=== PATIENT | female | born 1985 | race Two or more races ===

== ENCOUNTER 2017-12-16 12:53 | Emergency (ER) | payer OTHER ==
[2017-12-16 12:58] VITALS: BP 129/80; PULSE 61; TEMP 98.1; BMI 28.3
--- NOTE | 2017-12-16 13:12 | PDOC ---
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 Patient states she was working in the operating room when she was accidentally stuck with a 23-gauge hypodermic needle that was used for local anesthesia. Patient states she was wearing double gloves while in the operating room at the time. She immediately removed her gloves express fluid from the puncture wound and washed her hands with soap water Betadine and hydrogen peroxide. Patient then scrubbed out of the operating room and came to the emergency department for evaluation. Source patient hasn't medical record number of [id number] and has no documentation of communicable diseases. Pt is UTD with tetanus. Past History - Past Medical History Allergies/Adverse Reactions: Allergies Allergy/AdvReac Type Severity Reaction Status Date / Time No Known Allergies Allergy Verified 12/16/17 12:54 Home Medications: Ambulatory Orders Multivitamin [Multiple Vitamins] 1 each PO DAILY 12/16/17 COPD: No - Surgical History GI Surgery: Yes (gastric bypass) - Suicide/Smoking/Psychosocial Hx Smoking History: Never smoked Review of Systems - Review of Systems Able to Perform ROS?: Yes Is the patient limited Indonesian proficient: No Constitutional: No: Symptoms Reported HEENTM: No: Symptoms Reported Respiratory: No: Symptoms reported Cardiac (ROS): No: Symptoms Reported ABD/GI: No: Symptoms Reported : No: Symptoms Reported Musculoskeletal: No: Symptoms Reported Integumentary: No: Symptoms Reported Neurological: No: Symptoms reported Endocrine: No: Symptoms Reported Hematologic/Lymphatic: No: Symptoms Reported *Physical Exam - Vital Signs Last Vital Signs Temp Pulse Resp BP Pulse Ox 98.1 F 61 16 129/80 99 12/16/17 12:57 12/16/17 12:57 12/16/17 12:57 12/16/17 12:57 12/16/17 12:57 - Physical Exam General Appearance: Yes: Appropriately Dressed. No: Apparent Distress Musculoskeletal: positive: Normal Inspection, Other (Single puncture wound noted to the dorsum of the first inch on the right hand. Bleeding controlled at present) Integumentary: positive: Normal Color, Dry, Warm Medical Decision Making - Medical Decision Making 12/16/17 15:11 A/P: 32-year-old woman for evaluation status post needlestick Single puncture wound present to the dorsum of the first digit of the right hand Bleeding is controlled Source patient has no documented communicable diseases Labs, patient counseling After patient counseling provided, patient is choosing to defer medication therapy at this time. Patient's current HIV status is negative. Patient has been instructed to follow-up with occupational health and safety on the first floor building for reevaluation of her lab tests. I discussed the physical exam findings, ancillary test results and final diagnoses with the patient. I answered all of the patient's questions. The patient was satisfied with the care received and felt comfortable with the discharge plan and treatment plan. The patient will call their primary care physician within 24 hours to arrange follow-up and will return to the Emergency Department with any new, persistent or worsening symptoms. *DC/Admit/Observation/Transfer Diagnosis at time of Disposition: Needlestick injury due to hypodermic needle - Discharge Dispostion Disposition: HOME Condition at time of disposition: Fair Decision to Admit order: No - Referrals - Patient Instructions Printed Discharge Instructions: How to Handle Body Fluid Exposure -- Healthcare Worker Additional Instructions: Follow up with Workforce Health and Safety on the first floor here at [facility]. - Post Discharge Activity Forms/Work/School Notes: Back to Work
[2017-12-16 13:37] LABS: BASO % 0.7 % (0-2.0); EOS % 1.1 % (0-4.5); HEMATOCRIT 40.3 % (32.4-45.2); HEMOGLOBIN 13.2 GM/dL (10.7-15.3); LYMPH % 33.8 % (8-40); MCH 27.5 pg (25.7-33.7); MCHC 32.8 g/dl (32.0-36.0); MEAN CELL VOLUME 83.9 fl (80-96); MEAN PLT VOLUME 9.3 fl (7.5-11.1); MONO % 6.9 % (3.8-10.2); NEUT % 57.5 % (42.8-82.8); PLATELET COUNT 231 K/MM3 (134-434); RDW 12.9 % (11.6-15.6); WHITE BLOOD COUNT 6.5 K/mm3 (4.0-10.0)
[2017-12-16 14:00] LABS: ANION GAP 6 MMOL/L (8-16); BILIRUBIN,TOTAL 0.3 mg/dL (0.2-1); BLOOD UREA NITROGEN 9 mg/dL (7-18); CALCIUM 9.6 mg/dL (8.5-10.1); CHLORIDE 105 mmol/L (98-107); CHOLESTEROL 195 mg/dL (50-200); CO2 26 mmol/L (21-32); CREATININE 0.8 mg/dL (0.55-1.3); GLUCOSE,RANDOM 82 mg/dL (74-106); PHOSPHOROUS 3.6 mg/dL (2.5-4.9); POTASSIUM 4.1 mmol/L (3.5-5.1); SGOT/AST 20 U/L (15-37); SGPT/ALT 21 U/L (13-61); SODIUM 137 mmol/L (136-145); TOT PROT 7.6 g/dl (6.4-8.2); TRIGLYCERIDES 77 mg/dL (0-150); URIC ACID 4.3 mg/dL (2.6-7.2)
[2017-12-16 14:01] LABS: ALK PHOS 74 U/L (45-117); GAMMA GLUTAMYL TRANSPEPTIDASE 22 U/L (5-85); LDH 157 U/L (84-246)
[2017-12-17 06:08] LABS: HBsAG SCREEN Negative (Negative)
== END 2017-12-16 14:28 | disposition home or self-care (01) ==
LOC: JERFT 12:53
DX: S61.031A Puncture wound without foreign body of right thumb without damage to nail, initial encounter (principal); W46.1XXA Contact with contaminated hypodermic needle, initial encounter; Y93.89 Activity, other specified; Y92.234 Operating room of hospital as the place of occurrence of the external cause; Y99.0 Civilian activity done for income or pay
CPT/HCPCS: 36415; 80053; 82465; 82977; 83615; 84100; 84478; 84550; 84703; 85025; 86317; 86706; 86803; 87340; 87389; 99282-25

== ENCOUNTER 2018-06-20 14:48 | Emergency (ER) | payer OTHER ==
[2018-06-20 15:17] VITALS: BP 134/84; PULSE 61; TEMP 97.6; BMI 29.1
--- NOTE | 2018-06-20 15:17 | PDOC ---
Rapid Medical Evaluation Chief Complaint: Blood/Body Fluid Exposure SJR Time Seen by Provider: 06/20/18 15:14 Medical Evaluation: Allergies Allergy/AdvReac Type Severity Reaction Status Date / Time No Known Allergies Allergy Verified 12/16/17 12:54 06/20/18 15:14 33 YEAR OLD FEMALE reports during a cystogram irrigation fluid splas in the mouth. patient rinsed mouth. source patient info: kristi powell Pe: patient alert ox3 A: fluid exposure P; patient to the ER for further management of care. Discharge Disposition - Diagnosis Employee exposure to body fluids - Referrals - Patient Instructions
--- NOTE | 2018-06-20 15:54 | PDOC ---
Post Exposure HPI - General Chief Complaint: Blood/Body Fluid Exposure SJR Stated Complaint: FACE EXPOSED TO SOLUTION Time Seen by Provider: 06/20/18 15:14 - History of Present Illness Initial Comments: 06/20/18 15:53 33-year-old female without comorbidities presents for evaluation after body fluid exposure. 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 Past History - Past Medical History Allergies/Adverse Reactions: Allergies Allergy/AdvReac Type Severity Reaction Status Date / Time No Known Allergies Allergy Verified 12/16/17 12:54 Home Medications: Ambulatory Orders Multivitamin [Multiple Vitamins] 1 each PO DAILY 12/16/17 COPD: No - Surgical History GI Surgery: Yes (gastric bypass) - Suicide/Smoking/Psychosocial Hx Smoking History: Never smoked Have you smoked in the past 12 months: No Hx Alcohol Use: No Drug/Substance Use Hx: No Review of Systems - Review of Systems Constitutional: Yes: See HPI *Physical Exam - Vital Signs Last Vital Signs Temp Pulse Resp BP Pulse Ox 97.6 F 61 20 134/84 100 06/20/18 15:13 06/20/18 15:13 06/20/18 15:13 06/20/18 15:13 06/20/18 15:13 - Physical Exam Comments: 06/20/18 15:53 HEAD: NC/AT EYES: Conjuntiva clear MS: Full ROM in all joints without edema NEUROLOGIC: No gross sensory or motor deficits, NVID SKIN: Normal color and temperature no lesions or rashes Medical Decision Making - Medical Decision Making 06/20/18 15:53 Source patient is HIV and hepatitis negative according to the patient, low risk exposure including urine no blood born pathogen exposure. Patient offered HIV prophylaxis but refused I agree with this this is a low risk patient and a low risk exposure *DC/Admit/Observation/Transfer Diagnosis at time of Disposition: Employee exposure to body fluids - Discharge Dispostion Disposition: HOME Condition at time of disposition: Stable Decision to Admit order: No - Referrals - Patient Instructions Printed Discharge Instructions: How to Handle Body Fluid Exposure -- Healthcare Worker Additional Instructions: Return to the emergency room should you have any further issues otherwise follow -up with her primary care physician one to 2 days for further evaluation and treatment options. - Post Discharge Activity Forms/Work/School Notes: Back to Work
== END 2018-06-20 16:19 | disposition home or self-care (01) ==
LOC: JERFT 14:48
DX: Z77.21 Contact with and (suspected) exposure to potentially hazardous body fluids (principal); X58.XXXA Exposure to other specified factors, initial encounter; Y93.89 Activity, other specified; Y92.238 Other place in hospital as the place of occurrence of the external cause; Y99.0 Civilian activity done for income or pay
CPT/HCPCS: 99281-25

== ENCOUNTER 2018-09-19 20:14 | Emergency (ER) | payer OTHER ==
[2018-09-19 20:24] VITALS: BP 130/88; PULSE 60; TEMP 98; BMI 29.1
--- NOTE | 2018-09-19 20:28 | PDOC ---
Rapid Medical Evaluation Chief Complaint: Blood/Body Fluid Exposure SJR Time Seen by Provider: 09/19/18 20:21 Medical Evaluation: Allergies Allergy/AdvReac Type Severity Reaction Status Date / Time No Known Allergies Allergy Verified 09/19/18 20:24 Vital Signs Temp Pulse Resp BP Pulse Ox 98.0 F 60 16 130/88 100 09/19/18 20:22 09/19/18 20:22 09/19/18 20:22 09/19/18 20:22 09/19/18 20:22 09/19/18 20:26 I have performed a brief in-person evaluation of this patient. 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 Was wearing 2 gloves. Has since expressed blood and washed site. Pt hep B vaccinated w/ UTD tetanus. States source has hepatitis but unsure type. States staff upstairs has since ordered HIV/hep panel on source. Pt refusing PEP at this time Pertinent physical exam findings:unremarkable I have ordered the following:baseline labs The patient will proceed to the ED for further evaluation Discharge Disposition - Diagnosis Needlestick injury accident - Referrals - Patient Instructions
--- NOTE | 2018-09-19 21:22 | PDOC ---
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 While cleaning up she accidentally stuck herself with a suture needle while wearing 2 pairs of gloves. Patient noted finger prick to the cuticle of the left index finger. Patient noted small amounts of blood for which she and then wash her hands with soap and water. Patient reports she is up-to-date with her tetanus and has been vaccinated for hepatitis B. No recent travel or sick contacts. PAST MEDICAL HISTORY: Denies past medical history SURGICAL HISTORY: Denies ALLERGIES: No known drug allergies REVIEW OF SYSTEMS General/Constitutional: Denies fever or chills. Denies weakness, weight change. HEENT: Denies change in vision. Denies ear pain or discharge. Denies sore throat. Cardiovascular: Denies chest pain or shortness of breath. Respiratory: Denies cough, wheezing, or hemoptysis. Gastrointestinal: Denies nausea, vomiting, diarrhea or constipation. Denies rectal bleeding. Genitourinary: Denies dysuria, frequency, or change in urination. Musculoskeletal: Denies joint or muscle swelling or pain. Denies neck or back pain. Skin and breasts: see HPI Neurologic: Denies headache, vertigo, loss of consciousness, or loss of sensation. Psychiatric: Denies depression or anxiety. Endocrine: Denies increased thirst. Denies abnormal weight change. Hematologic/Lymphatic: Denies anemia, easy bleeding, or history of blood clots. Allergic/Immunologic: Denies hives or skin allergy. Denies latex allergy. PHYSICAL EXAM General Appearance: Well-appearing, appropriately dressed. No apparent distress , no intoxication. Musculoskeletal/Extremities: Normal inspection. FROM of all extremities, normal capillary refill. Pelvis Stable. No CVA tenderness. No tenderness to extremities, pedal edema, swelling, erythema or deformity. Integumentary: Punctate wound present to the cuticle of the left index finger. Bleeding is controlled. 09/19/18 22:17 Past History - Past Medical History Allergies/Adverse Reactions: Allergies Allergy/AdvReac Type Severity Reaction Status Date / Time No Known Allergies Allergy Verified 09/19/18 20:24 Home Medications: Ambulatory Orders Multivitamin [Multiple Vitamins] 1 each PO DAILY 12/16/17 COPD: No - Surgical History GI Surgery: Yes (gastric bypass) - Suicide/Smoking/Psychosocial Hx Smoking History: Unknown if ever smoked Have you smoked in the past 12 months: No Information on smoking cessation initiated: No Hx Alcohol Use: No Drug/Substance Use Hx: No *Physical Exam - Vital Signs Last Vital Signs Temp Pulse Resp BP Pulse Ox 98.0 F 60 16 130/88 100 09/19/18 20:22 09/19/18 20:22 09/19/18 20:22 09/19/18 20:22 09/19/18 20:22 Medical Decision Making - Medical Decision Making 09/19/18 21:26 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 I will wait for her HIV results prior to discharge home for patient to follow- up with occupational health services. 09/19/18 21:43 Hiv testing is negative. Discharge home to f/u with [facility]. *DC/Admit/Observation/Transfer Diagnosis at time of Disposition: Needlestick injury accident - Discharge Dispostion Disposition: HOME Condition at time of disposition: Stable Decision to Admit order: No - Referrals - Patient Instructions Printed Discharge Instructions: How to Handle Body Fluid Exposure -- Healthcare Worker Additional Instructions: Your HIV testing today was negative. Follow-up with occupational health services for your of the laboratory testing. You may start postexposure prophylaxis at that time should she change your mind. Thank you very much for choosing us to provide your emergent health care needs. - Post Discharge Activity Forms/Work/School Notes: Back to Work
== END 2018-09-19 21:46 | disposition home or self-care (01) ==
LOC: JERFT 20:14
DX: Z77.21 Contact with and (suspected) exposure to potentially hazardous body fluids (principal); S61.032A Puncture wound without foreign body of left thumb without damage to nail, initial encounter; W46.1XXA Contact with contaminated hypodermic needle, initial encounter; Y93.F9 Activity, other caregiving; Y92.234 Operating room of hospital as the place of occurrence of the external cause; Y99.0 Civilian activity done for income or pay
CPT/HCPCS: 36415; 86317; 86704; 86803; 87340; 87389; 99282-25

== ENCOUNTER 2021-02-03 20:05 | Inpatient (IN) | payer OTHER ==
[2021-02-03 21:16] VITALS: BMI 33.9
[2021-02-03] MEDS ORDERED: DINOPROSTONE 10 MG VAGINAL SUPPOSITORY VG ONE (21:30)
[2021-02-03] MEDS: ELECTROLYTE-148 SOLN 1,000 ML IV SCH (22:00)
[2021-02-04] MEDS ORDERED: AMPICILLIN - 2 GM in SODIUM CHLORIDE 100 ML IVPB ONE (06:20)
[2021-02-04] MEDS ORDERED: AMPICILLIN SODIUM 2 GM VIAL ONE (06:25)
[2021-02-04] MEDS ORDERED: AMPICILLIN SODIUM 1 GM VIAL ONE ×3 (10:10→17:37)
[2021-02-04] MEDS: AMPICILLIN - 1 GM in SODIUM CHLORIDE 100 ML IVPB SCH ×3 (10:20→18:15)
[2021-02-04] MEDS ORDERED: BUTORPHANOL TARTRATE 1 MG/ML VIAL IVPUSH ONE (11:54)
[2021-02-04] MEDS ORDERED: BUTORPHANOL TARTRATE 2 MG/ML VIAL IVPB ONE (11:54)
[2021-02-04] MEDS ORDERED: PROMETHAZINE HCL 25 MG/1 ML VIAL IVPB ONE (11:54)
[2021-02-04] MEDS ORDERED: PROMETHAZINE HCL 25 MG/1 ML VIAL IVPUSH ONE (11:54)
[2021-02-04] MEDS ORDERED: OXYTOCIN 30 UNITS in 0.9% NS 30 UNIT/500 ML INFUS.BAG IVPB SCH (12:00)
[2021-02-04] MEDS ORDERED: OXYTOCIN 30 UNITS in 0.9% NS 30 UNIT/500 ML INFUS.BAG IVPB ONE (12:46)
[2021-02-04] MEDS ORDERED: FENTANYL/BUPIVACAINE/NS/PF - PCEA - 50 ML DISP.SYRIN EP ONE ×2 (14:07→18:54)
[2021-02-04] MEDS ORDERED: PCA PUMP NR ONE ×2 (14:07→18:55)
[2021-02-04] MEDS ORDERED: BUPIVACAINE HCL/PF 0.25% (2.5MG/ML) 10 ML VIAL ONE (14:15)
[2021-02-04] MEDS: ELECTROLYTE-148 SOLN 1,000 ML IV SCH ×2 (16:05→22:19)
[2021-02-04] MEDS ORDERED: NALOXONE HCL 0.4 MG/ML VIAL IVPUSH PRN (16:45)
[2021-02-04] MEDS ORDERED: FENTANYL/BUPIVACAINE/NS/PF - PCEA - 50 ML DISP.SYRIN EP SCH (16:45)
[2021-02-04] MEDS ORDERED: OXYTOCIN 20 UNITS in 0.9% NS 20 UNIT/1,000 ML INFUS.BAG IV ONE (20:50)
[2021-02-04] MEDS ORDERED: BENZOCAINE 20% 57 GM BOTTLE TP PRN (21:35)
[2021-02-04] MEDS ORDERED: METHYLERGONOVINE MALEATE 0.2 MG/1 ML AMP IM PRN (21:35)
[2021-02-04] MEDS ORDERED: ACETAMINOPHEN 325 MG TABLET (FP) PO PRN (21:35)
[2021-02-04] MEDS ORDERED: BISACODYL 10 MG SUPP.RECT RC PRN (21:35)
[2021-02-04] MEDS ORDERED: WITCH HAZEL 50% (TUCKS) 40 PAD/JAR PAD TP PRN (21:35)
[2021-02-04] MEDS ORDERED: BENZOCAINE 28 GM HEMORRHOIDAL OINTMENT TP PRN (21:35)
[2021-02-04] MEDS ORDERED: OXYTOCIN 20 UNITS in 0.9% NS 20 UNIT/1,000 ML INFUS.BAG IV SCH (21:45)
[2021-02-04 22:01] LABS: CORD BASE EXCESS -4.4 mmol/L (0-2); CORD HCO3 22.1 mmHg (20-29); CORD PCO2 45.7 mmHg (30-78); CORD pH 7.302 (7.14-7.44)
[2021-02-05] MEDS: IBUPROFEN 600 MG TABLET (FP) PO PRN ×2 (00:10→10:06)
[2021-02-05 08:06] LABS: BASO % 0.2 % (0-2.0); EOS % 0.4 % (0-4.5); HEMATOCRIT 36.2 % (32.4-45.2); HEMOGLOBIN 11.7 GM/dL (10.7-15.3); LYMPH % 11.3 % (8-40); MCH 28.3 pg (25.7-33.7); MCHC 32.4 g/dl (32.0-36.0); MEAN CELL VOLUME 87.4 fl (80-96); MEAN PLT VOLUME 8.9 fl (7.5-11.1); MONO % 5.8 % (3.8-10.2); NEUT % 82.3 % (42.8-82.8); PLATELET COUNT 162 10^3/uL (134-434); RBC 4.14 M/mm3 (3.60-5.2); RDW 14.4 % (11.6-15.6); WHITE BLOOD COUNT 13.4 K/mm3 (4.0-10.0)
[2021-02-05] MEDS: PRENATAL VITAMINS W/ FOLIC ACID TABLET (FP) PO SCH (10:06)
[2021-02-05] MEDS ORDERED: SENNOSIDES/DOCUSATE COMBO (SENNA PLUS) TABLET (UD) PO PRN (22:00)
[2021-02-06] MEDS: PRENATAL VITAMINS W/ FOLIC ACID TABLET (FP) PO SCH (09:26)
[2021-02-06 10:46] VITALS: BP 115/68; PULSE 74; TEMP 97.9
== END 2021-02-06 15:50 | disposition home or self-care (01) | DRG 807 ==
LOC: JLDR 20:05 → J3W 02-04 23:33
PROVIDERS: ADMIT Obstetrics & Gynecology; ATTEND Obstetrics & Gynecology
PROC: 0KQM0ZZ Repair Perineum Muscle, Open Approach (ICD-10-PCS; principal; 2021-02-04)
PROC: 10E0XZZ Delivery of Products of Conception, External Approach (ICD-10-PCS; 2021-02-04)
DX: O70.1 Second degree perineal laceration during delivery (principal); O36.5930 Maternal care for other known or suspected poor fetal growth, third trimester, not applicable or unspecified; Z3A.39 39 weeks gestation of pregnancy; Z37.0 Single live birth
CPT/HCPCS: 36415; 36600; 59409; 82803; 85025; 86762